=== PATIENT | female | born 1940 | race Two or more races ===

== ENCOUNTER 2021-03-17 12:16 | Inpatient (IN) | payer OTHER, MEDICAID ==
[~2021-03-17] VITALS: Ht 152.4 cm; Wt 76.1 kg
[~2021-03-17 12:16] MED LIST: ASPI-543 PO; GLIP5TAB12 PO; METF-370 PO
[2021-03-17] MEDS ORDERED: ONDANSETRON HCL 4 MG/2 ML VIAL IV ONE (13:15)
[2021-03-17] MEDS ORDERED: MORPHINE SULFATE 4 MG/ML SYR/VIAL IV ONE ×2 (13:15→19:45)
[2021-03-17 14:12] LABS: Basophils # (auto) 0 10 ^3/uL (0-0.2); Basophils % (auto) 0.4 % (0.0-2.0); Eosinophils # (auto) 0.1 10 ^3/uL (0-0.8); Eosinophils % (auto) 1.3 % (0.0-7.0); Hemoglobin 10.4 g/dL (12.2-16.2); Lymphocytes # (auto) 0.6 10 ^3/uL (0.4-5.4); Lymphocytes % (auto) 7.7 % (10.0-50.0); Mean Corpuscular Hemoglobin 30.4 pg (28.0-32.0); Mean Corpuscular Hgb Conc. 32.6 g/dL (32.0-36.0); Mean Corpuscular Volume 93.4 fL (80.0-100.0); Monocytes # (auto) 0.3 10 ^3/uL (0-1.3); Monocytes % (auto) 3.7 % (0.0-12.0); Neutrophils # (auto) 6.2 10 ^3/uL (1.6-8.6); Neutrophils % (auto) 86.9 % (37.0-80.0); Nucleated Red Blood Cells % 0.1 %; Red Blood Cells 3.43 10^6/uL (4.0-5.20); Red Cell Distribution Width 17.2 % (11.8-14.3); White Blood Cell 7.1 10^3/uL (4.4-10.8)
[2021-03-17 14:17] LABS: Albumin 1.4 g/dL (3.4-5.0); Anion Gap 7 (5-15); Blood Urea Nitrogen 24 mg/dL (7-18); Carbon Dioxide 27 mmol/L (21-32); Chloride 105 mmol/L (98-107); Glucose 134 mg/dL (74-106); Potassium 3.2 mmol/L (3.5-5.1); Sodium 139 mmol/L (136-145)
[2021-03-17 14:20] LABS: Alanine Aminotransferase < 6 U/L (13-56); Alkaline Phosphatase 136 U/L (45-117); Aspartate Aminotransferase 20 U/L (15-37); BUN/Creatinine Ratio 10.7; Bilirubin, Total 0.5 mg/dL (0.2-1.0); GFR African American 27 mL/min; GFR Non-African American 22 mL/min; Total Protein 5.5 g/dL (6.4-8.2)
[2021-03-17 14:58] LABS: INR 1.26 (0.9-1.15); Partial Thromboplastin Time 33.1 sec (23.6-33.0)
[2021-03-17] MEDS ORDERED: POTASSIUM EFFERVESENT TAB 25 MEQ PO ONE (17:00)
[2021-03-17] MEDS ORDERED: SODIUM CHLORIDE 0.9% 1,000 ML IV ONE (18:15)
[2021-03-17 19:04] LABS: Basophils # (auto) 0.1 10 ^3/uL (0-0.2); Basophils % (auto) 0.5 % (0.0-2.0); Eosinophils # (auto) 0 10 ^3/uL (0-0.8); Eosinophils % (auto) 0.4 % (0.0-7.0); Hematocrit 30.9 % (36.0-46.0); Hemoglobin 9.9 g/dL (12.2-16.2); Lymphocytes # (auto) 0.6 10 ^3/uL (0.4-5.4); Lymphocytes % (auto) 5.3 % (10.0-50.0); Mean Corpuscular Hemoglobin 30.2 pg (28.0-32.0); Mean Corpuscular Volume 94.4 fL (80.0-100.0); Monocytes # (auto) 0.4 10 ^3/uL (0-1.3); Monocytes % (auto) 3.5 % (0.0-12.0); Neutrophils # (auto) 9.5 10 ^3/uL (1.6-8.6); Neutrophils % (auto) 90.3 % (37.0-80.0); Red Blood Cells 3.27 10^6/uL (4.0-5.20); Red Cell Distribution Width 17.3 % (11.8-14.3); White Blood Cell 10.5 10^3/uL (4.4-10.8)
[2021-03-18] MEDS ORDERED: ACETAMINOPHEN 325 MG TAB PO PRN (00:45)
[2021-03-18] MEDS ORDERED: NITROGLYCERIN 0.4 MG SL TAB SL PRN (00:45)
[2021-03-18] MEDS ORDERED: DOCUSATE SOD 100 MG CAP PO PRN (00:45)
[2021-03-18] MEDS ORDERED: MORPHINE SULFATE INJECTION 2 MG/ML SYRG IV PRN (00:45)
[2021-03-18] MEDS ORDERED: ALBUMIN 25% 100 ML IV ONE (00:45)
[2021-03-18] MEDS ORDERED: DEXTROSE (50%) 50ML SYRG IV PRN (00:45)
[2021-03-18] MEDS ORDERED: ONDANSETRON HCL 4 MG/2 ML VIAL IV PRN (00:45)
[2021-03-18 01:45] VITALS: BP 124/73
[2021-03-18 05:00] VITALS: BP 102/43
[2021-03-18] MEDS ORDERED: APIX2.5T PO (05:12)
[2021-03-18] MEDS ORDERED: METR500T PO (05:14)
[2021-03-18] MEDS ORDERED: CIPR-173 PO (05:14)
[2021-03-18] MEDS ORDERED: AMIO200T33 PO (05:14)
[2021-03-18] MEDS: HYDROcodone-ACET 5/325MG TAB PO PRN (06:09)
[2021-03-18] MEDS: SODIUM CHLOR 0.9% PF (SALINE LOCK) 10ML VIAL/SYR IV SCH ×3 (06:11→21:04)
[2021-03-18] MEDS: ACCU-CHEK COMFORT CURVE STRIP VI SCH ×4 (06:22→21:05)
[2021-03-18] MEDS: InsuLIN REG 1unit/0.01ml Soln (100units/ml) SC SCH ×4 (06:23→21:12)
[2021-03-18 07:40] LABS: Basophils # (auto) 0 10 ^3/uL (0-0.2); Eosinophils # (auto) 0 10 ^3/uL (0-0.8); Eosinophils % (auto) 0.6 % (0.0-7.0); Hematocrit 22.4 % (36.0-46.0); Lymphocytes # (auto) 0.4 10 ^3/uL (0.4-5.4); Monocytes # (auto) 0.3 10 ^3/uL (0-1.3); Red Cell Distribution Width 17.5 % (11.8-14.3)
[2021-03-18 07:42] LABS: Basophils % (auto) 0.5 % (0.0-2.0); Hemoglobin 7.4 g/dL (12.2-16.2); Lymphocytes % (auto) 6.9 % (10.0-50.0); Mean Corpuscular Volume 93.9 fL (80.0-100.0); Monocytes % (auto) 4.6 % (0.0-12.0); Neutrophils # (auto) 5.5 10 ^3/uL (1.6-8.6); Neutrophils % (auto) 87.4 % (37.0-80.0); Red Blood Cells 2.38 10^6/uL (4.0-5.20); White Blood Cell 6.3 10^3/uL (4.4-10.8)
[2021-03-18 08:14] LABS: Albumin 1.8 g/dL (3.4-5.0); Anion Gap 8 (5-15); Blood Urea Nitrogen 28 mg/dL (7-18); Calcium 7.1 mg/dL (8.5-10.1); Carbon Dioxide 26 mmol/L (21-32); Chloride 107 mmol/L (98-107); Glucose 135 mg/dL (74-106); Sodium 141 mmol/L (136-145)
[2021-03-18 08:21] LABS: Alanine Aminotransferase < 6 U/L (13-56); Alkaline Phosphatase 91 U/L (45-117); Aspartate Aminotransferase 15 U/L (15-37); BUN/Creatinine Ratio 11.5; Bilirubin, Total 0.6 mg/dL (0.2-1.0); Cholesterol 55 mg/dL (< 200); GFR African American 25 mL/min; GFR Non-African American 20 mL/min; HDL Cholesterol 20 mg/dL (40-59); LDL Cholesterol 26 mg/dL (< 100); Total Protein 4.7 g/dL (6.4-8.2); Triglycerides 99 mg/dL (< 150)
[2021-03-18 09:00] VITALS: BP 111/51
[2021-03-18] MEDS: ZINC SULFATE 220mg CAP or TAB PO SCH (09:18)
[2021-03-18] MEDS: ASCORBIC ACID 500 MG TAB PO SCH ×2 (09:19→21:05)
[2021-03-18] MEDS: SEVELAMER 800 MG TAB PO SCH ×3 (09:19→18:10)
[2021-03-18] MEDS: B-COMPLEX W/ C & FOLIC ACID(NEPHROVITE TAB) PO SCH (09:19)
[2021-03-18] MEDS ORDERED: ASPirin 81 mg TAB PO SCH (10:00)
[2021-03-18] MEDS ORDERED: cefTRIAXone 1GM/50ML D5W 50 ML IV ONE (11:15)
[2021-03-18] MEDS ORDERED: AMIODARONE HCL 200 MG TAB PO ONE (11:15)
[2021-03-18 13:00] VITALS: BP 134/95
[2021-03-18] MEDS ORDERED: FUROSEMIDE 100 MG/10ML VIAL IV ONE (13:45)
[2021-03-18] MEDS: metroNIDAZOLE 500MG/100ML 100 ML IV SCH ×2 (14:01→21:04)
[2021-03-18 16:51] VITALS: BP 119/66
[2021-03-18] MEDS: ATORVASTATIN 20 MG TAB PO SCH (21:04)
[2021-03-18 22:00] VITALS: BP 113/55
[2021-03-19] VITALS (9 sets, daily range): BP systolic 99–149; BP diastolic 39–74
[2021-03-19 05:43] LABS: Basophils # (auto) 0 10 ^3/uL (0-0.2); Lymphocytes # (auto) 0.5 10 ^3/uL (0.4-5.4); Monocytes # (auto) 0.3 10 ^3/uL (0-1.3); Red Blood Cells 2.11 10^6/uL (4.0-5.20)
[2021-03-19 05:44] LABS: Basophils % (auto) 0.5 % (0.0-2.0); Eosinophils # (auto) 0.1 10 ^3/uL (0-0.8); Eosinophils % (auto) 2.4 % (0.0-7.0); Hematocrit 19.7 % (36.0-46.0); Mean Corpuscular Hemoglobin 31.1 pg (28.0-32.0); Mean Corpuscular Hgb Conc. 33.3 g/dL (32.0-36.0); Mean Corpuscular Volume 93.4 fL (80.0-100.0); Monocytes % (auto) 4.9 % (0.0-12.0); Neutrophils # (auto) 4.6 10 ^3/uL (1.6-8.6); Neutrophils % (auto) 83.2 % (37.0-80.0); Nucleated Red Blood Cells % 0.1 %; Red Cell Distribution Width 17.4 % (11.8-14.3); White Blood Cell 5.5 10^3/uL (4.4-10.8)
[2021-03-19 05:47] LABS: Hemoglobin 6.6 g/dL (12.2-16.2)
[2021-03-19 05:49] LABS: Albumin 1.5 g/dL (3.4-5.0); Anion Gap 9 (5-15); Blood Urea Nitrogen 30 mg/dL (7-18); Calcium 6.6 mg/dL (8.5-10.1); Carbon Dioxide 26 mmol/L (21-32); Chloride 106 mmol/L (98-107); Glucose 115 mg/dL (74-106); Potassium 3.6 mmol/L (3.5-5.1); Sodium 141 mmol/L (136-145)
[2021-03-19 05:54] LABS: Alanine Aminotransferase < 6 U/L (13-56); Alkaline Phosphatase 84 U/L (45-117); Aspartate Aminotransferase 9 U/L (15-37); BUN/Creatinine Ratio 11.3; Bilirubin, Total 0.4 mg/dL (0.2-1.0); GFR African American 22 mL/min; GFR Non-African American 19 mL/min; Total Protein 4.4 g/dL (6.4-8.2)
[2021-03-19] MEDS: SODIUM CHLOR 0.9% PF (SALINE LOCK) 10ML VIAL/SYR IV SCH ×3 (06:00→22:00)
[2021-03-19] MEDS: metroNIDAZOLE 500MG/100ML 100 ML IV SCH ×3 (06:00→23:02)
[2021-03-19] MEDS: ACCU-CHEK COMFORT CURVE STRIP VI SCH ×4 (06:48→23:02)
[2021-03-19] MEDS: InsuLIN REG 1unit/0.01ml Soln (100units/ml) SC SCH ×4 (07:00→23:25)
[2021-03-19] MEDS ORDERED: HEPARIN 1,000 UNITS/ml 1ML VIAL IV ONE (08:00)
[2021-03-19] MEDS: SEVELAMER 800 MG TAB PO SCH ×3 (08:00→18:00)
[2021-03-19] MEDS: cefTRIAXone 1GM/50ML D5W 50 ML IV SCH (09:00)
[2021-03-19] MEDS: HYDROcodone-ACET 5/325MG TAB PO PRN ×2 (09:25→20:26)
[2021-03-19] MEDS: B-COMPLEX W/ C & FOLIC ACID(NEPHROVITE TAB) PO SCH (15:58)
[2021-03-19] MEDS: ASCORBIC ACID 500 MG TAB PO SCH ×2 (15:58→23:02)
[2021-03-19] MEDS: AMIODARONE HCL 200 MG TAB PO SCH (15:59)
[2021-03-19] MEDS: ZINC SULFATE 220mg CAP or TAB PO SCH (15:59)
[2021-03-19 18:47] LABS: Hematocrit 30.9 % (36.0-46.0); Hemoglobin 10.2 g/dL (12.2-16.2)
[2021-03-19] MEDS ORDERED: EPOETIN ALFA-EPBX 10,000 UNIT/1ML VIAL SC ONE (21:00)
[2021-03-19] MEDS: ATORVASTATIN 20 MG TAB PO SCH (23:02)
[2021-03-20 05:00] VITALS: BP 112/55
[2021-03-20] MEDS: metroNIDAZOLE 500MG/100ML 100 ML IV SCH ×3 (05:51→22:06)
[2021-03-20] MEDS: HYDROcodone-ACET 5/325MG TAB PO PRN ×3 (05:51→18:15)
[2021-03-20] MEDS: SODIUM CHLOR 0.9% PF (SALINE LOCK) 10ML VIAL/SYR IV SCH ×3 (05:52→22:00)
[2021-03-20 06:33] LABS: Basophils # (auto) 0 10 ^3/uL (0-0.2); Basophils % (auto) 0.4 % (0.0-2.0); Eosinophils # (auto) 0.1 10 ^3/uL (0-0.8); Eosinophils % (auto) 1.7 % (0.0-7.0); Hematocrit 33.2 % (36.0-46.0); Hemoglobin 10.9 g/dL (12.2-16.2); Lymphocytes # (auto) 0.9 10 ^3/uL (0.4-5.4); Lymphocytes % (auto) 10.4 % (10.0-50.0); Mean Corpuscular Hemoglobin 30.2 pg (28.0-32.0); Mean Corpuscular Hgb Conc. 32.8 g/dL (32.0-36.0); Monocytes # (auto) 0.4 10 ^3/uL (0-1.3); Monocytes % (auto) 5.2 % (0.0-12.0); Neutrophils # (auto) 6.9 10 ^3/uL (1.6-8.6); Neutrophils % (auto) 82.3 % (37.0-80.0); Nucleated Red Blood Cells % 0.1 %; Red Blood Cells 3.61 10^6/uL (4.0-5.20); White Blood Cell 8.4 10^3/uL (4.4-10.8)
[2021-03-20 07:00] LABS: Potassium 3.6 mmol/L (3.5-5.1)
[2021-03-20] MEDS: InsuLIN REG 1unit/0.01ml Soln (100units/ml) SC SCH ×4 (07:00→22:00)
[2021-03-20 07:01] LABS: Calcium 6.6 mg/dL (8.5-10.1)
[2021-03-20 07:04] LABS: BUN/Creatinine Ratio 8.4
[2021-03-20] MEDS: ACCU-CHEK COMFORT CURVE STRIP VI SCH ×4 (07:28→22:06)
[2021-03-20] MEDS: SEVELAMER 800 MG TAB PO SCH ×3 (08:00→18:00)
[2021-03-20 09:00] VITALS: BP 132/76
[2021-03-20] MEDS: cefTRIAXone 1GM/50ML D5W 50 ML IV SCH (09:00)
[2021-03-20] MEDS: B-COMPLEX W/ C & FOLIC ACID(NEPHROVITE TAB) PO SCH (09:28)
[2021-03-20] MEDS: ZINC SULFATE 220mg CAP or TAB PO SCH (09:28)
[2021-03-20] MEDS: ASCORBIC ACID 500 MG TAB PO SCH ×2 (09:28→22:06)
[2021-03-20] MEDS: AMIODARONE HCL 200 MG TAB PO SCH (09:28)
[2021-03-20 13:00] VITALS: BP 119/65
[2021-03-20 17:00] VITALS: BP 107/54
[2021-03-20 22:00] VITALS: BP 143/79
[2021-03-20] MEDS: ATORVASTATIN 20 MG TAB PO SCH (22:06)
[2021-03-21 05:00] VITALS: BP 144/73
[2021-03-21] MEDS: metroNIDAZOLE 500MG/100ML 100 ML IV SCH ×2 (05:52→14:00)
[2021-03-21] MEDS: HYDROcodone-ACET 5/325MG TAB PO PRN ×3 (05:52→19:03)
[2021-03-21] MEDS: SODIUM CHLOR 0.9% PF (SALINE LOCK) 10ML VIAL/SYR IV SCH ×2 (06:00→12:57)
[2021-03-21] MEDS: ACCU-CHEK COMFORT CURVE STRIP VI SCH ×4 (07:00→22:00)
[2021-03-21] MEDS: InsuLIN REG 1unit/0.01ml Soln (100units/ml) SC SCH ×4 (07:00→22:00)
[2021-03-21] MEDS: ZINC SULFATE 220mg CAP or TAB PO SCH (08:53)
[2021-03-21] MEDS: SEVELAMER 800 MG TAB PO SCH ×3 (08:53→17:25)
[2021-03-21] MEDS: cefTRIAXone 1GM/50ML D5W 50 ML IV SCH (08:53)
[2021-03-21] MEDS: ASCORBIC ACID 500 MG TAB PO SCH (08:54)
[2021-03-21] MEDS: B-COMPLEX W/ C & FOLIC ACID(NEPHROVITE TAB) PO SCH (08:54)
[2021-03-21] MEDS: AMIODARONE HCL 200 MG TAB PO SCH (08:54)
[2021-03-21 09:00] VITALS: BP 112/57
[2021-03-21 13:00] VITALS: BP 128/66
[2021-03-21 14:05] LABS: Hepatitis A Ab IgM Negative
[2021-03-21 14:21] LABS: Hepatitis B Core IgM Negative
[2021-03-21 14:23] LABS: Hepatitis C Antibody Negative (Negative)
[2021-03-21] MEDS ORDERED: FLUCONAZOLE 200MG/100ML 100 ML IV ONE (15:00)
[2021-03-21 17:00] VITALS: BP 143/68
[2021-03-21] MEDS: LINEZOLID 600MG/300ML 300 ML IV SCH (17:25)
[2021-03-21 20:00] VITALS: BP 134/95
[2021-03-21 22:00] VITALS: BP 128/68
[2021-03-22] MEDS: metroNIDAZOLE 500MG/100ML 100 ML IV SCH ×4 (00:13→22:03)
[2021-03-22] MEDS: SODIUM CHLOR 0.9% PF (SALINE LOCK) 10ML VIAL/SYR IV SCH ×4 (00:14→22:04)
[2021-03-22] MEDS: ATORVASTATIN 20 MG TAB PO SCH ×2 (00:14→22:04)
[2021-03-22] MEDS: ASCORBIC ACID 500 MG TAB PO SCH ×3 (00:14→22:04)
[2021-03-22 05:00] VITALS: BP 124/62
[2021-03-22] MEDS: LINEZOLID 600MG/300ML 300 ML IV SCH ×2 (05:44→18:00)
[2021-03-22 06:26] LABS: Basophils # (auto) 0 10 ^3/uL (0-0.2); Basophils % (auto) 0.8 % (0.0-2.0); Eosinophils # (auto) 0.2 10 ^3/uL (0-0.8); Eosinophils % (auto) 3.1 % (0.0-7.0); Hemoglobin 10.2 g/dL (12.2-16.2); Lymphocytes # (auto) 0.9 10 ^3/uL (0.4-5.4); Lymphocytes % (auto) 15.4 % (10.0-50.0); Mean Corpuscular Hemoglobin 30.7 pg (28.0-32.0); Mean Corpuscular Volume 92.9 fL (80.0-100.0); Monocytes # (auto) 0.4 10 ^3/uL (0-1.3); Monocytes % (auto) 6.6 % (0.0-12.0); Neutrophils # (auto) 4.4 10 ^3/uL (1.6-8.6); Neutrophils % (auto) 74.1 % (37.0-80.0); Nucleated Red Blood Cells % 0.1 %; Red Blood Cells 3.33 10^6/uL (4.0-5.20); Red Cell Distribution Width 16.4 % (11.8-14.3)
[2021-03-22 06:51] LABS: BUN/Creatinine Ratio 11.1; Calcium 6.4 mg/dL (8.5-10.1)
[2021-03-22] MEDS: ACCU-CHEK COMFORT CURVE STRIP VI SCH ×4 (07:00→22:04)
[2021-03-22] MEDS: InsuLIN REG 1unit/0.01ml Soln (100units/ml) SC SCH ×4 (07:00→22:18)
[2021-03-22] MEDS: SEVELAMER 800 MG TAB PO SCH ×3 (08:00→18:00)
[2021-03-22] MEDS: HYDROcodone-ACET 5/325MG TAB PO PRN ×3 (08:30→19:20)
[2021-03-22 09:00] VITALS: BP 129/61
[2021-03-22] MEDS ORDERED: SODIUM CHL 0.9% 1000 ML BAG XX ONE (11:45)
[2021-03-22 12:00] VITALS: BP 124/61
[2021-03-22] MEDS: ZINC SULFATE 220mg CAP or TAB PO SCH (14:00)
[2021-03-22] MEDS: AMIODARONE HCL 200 MG TAB PO SCH (14:00)
[2021-03-22] MEDS: FLUCONAZOLE 200MG/100ML 100 ML IV SCH (14:00)
[2021-03-22] MEDS: B-COMPLEX W/ C & FOLIC ACID(NEPHROVITE TAB) PO SCH (14:00)
[2021-03-22 14:15] VITALS: BP 124/61
[2021-03-22 16:00] VITALS: BP 136/69
[2021-03-22 21:58] VITALS: BP 123/57
[2021-03-23] MEDS: HYDROcodone-ACET 5/325MG TAB PO PRN ×3 (03:09→15:17)
[2021-03-23 05:00] VITALS: BP 126/66
[2021-03-23] MEDS: metroNIDAZOLE 500MG/100ML 100 ML IV SCH (05:35)
[2021-03-23] MEDS: SODIUM CHLOR 0.9% PF (SALINE LOCK) 10ML VIAL/SYR IV SCH ×2 (05:35→16:53)
[2021-03-23] MEDS: ACCU-CHEK COMFORT CURVE STRIP VI SCH ×3 (06:52→17:00)
[2021-03-23] MEDS: InsuLIN REG 1unit/0.01ml Soln (100units/ml) SC SCH ×3 (06:52→17:00)
[2021-03-23] MEDS: LINEZOLID 600MG/300ML 300 ML IV SCH (07:09)
[2021-03-23] MEDS: SEVELAMER 800 MG TAB PO SCH ×2 (08:32→12:29)
[2021-03-23 09:00] VITALS: BP 132/70
[2021-03-23] MEDS: FLUCONAZOLE 200MG/100ML 100 ML IV SCH (11:03)
[2021-03-23] MEDS: ASCORBIC ACID 500 MG TAB PO SCH (11:03)
[2021-03-23] MEDS: B-COMPLEX W/ C & FOLIC ACID(NEPHROVITE TAB) PO SCH (11:03)
[2021-03-23] MEDS: AMIODARONE HCL 200 MG TAB PO SCH (11:03)
[2021-03-23] MEDS: ZINC SULFATE 220mg CAP or TAB PO SCH (11:03)
[2021-03-23 13:17] VITALS: BP 151/71
[2021-03-23] MEDS ORDERED: metroNIDAZOLE 500 MG TAB PO SCH (14:00)
[2021-03-23 17:00] VITALS: BP 110/65
[2021-03-23] MEDS ORDERED: LINEZOLID 600MG TABLET PO SCH (22:00)
[2021-03-24] MEDS ORDERED: FLUCONAZOLE 100 MG TAB PO SCH (10:00)
== END 2021-03-23 17:30 | disposition home or self-care (01) | DRG 604 ==
LOC: ER 12:16 → EDBD 12:16 → EDUNIT# 12:16 → TELE 03-18 00:36 → TELE-WESTW 03-18 01:45 → TELE-EAST 03-23 02:00
PROVIDERS: ADMIT Nurse Practitioner Family; ATTEND Internal Medicine Geriatric Medicine
PROC: 30233N1 Transfusion of Nonautologous Red Blood Cells into Peripheral Vein, Percutaneous Approach (ICD-10-PCS; principal; 2021-03-19)
PROC: 5A1D70Z Performance of Urinary Filtration, Intermittent, Less than 6 Hours Per Day (ICD-10-PCS; 2021-03-19)
PROC: 5A1D70Z Performance of Urinary Filtration, Intermittent, Less than 6 Hours Per Day (ICD-10-PCS; 2021-03-22)
DX: S71.002A Unspecified open wound, left hip, initial encounter (principal); N18.6 End stage renal disease; U07.1 COVID-19; D62 Acute posthemorrhagic anemia; E44.0 Moderate protein-calorie malnutrition; D68.9 Coagulation defect, unspecified; I13.2 Hypertensive heart and chronic kidney disease with heart failure and with stage 5 chronic kidney disease, or end stage renal disease; N17.9 Acute kidney failure, unspecified; E87.6 Hypokalemia; E88.09 Other disorders of plasma-protein metabolism, not elsewhere classified; D63.1 Anemia in chronic kidney disease; I48.0 Paroxysmal atrial fibrillation; E11.22 Type 2 diabetes mellitus with diabetic chronic kidney disease; E11.65 Type 2 diabetes mellitus with hyperglycemia; I25.10 Atherosclerotic heart disease of native coronary artery without angina pectoris; I25.5 Ischemic cardiomyopathy; I50.9 Heart failure, unspecified; X58.XXXA Exposure to other specified factors, initial encounter; Z79.01 Long term (current) use of anticoagulants; Z99.2 Dependence on renal dialysis; Z80.0 Family history of malignant neoplasm of digestive organs; Z80.1 Family history of malignant neoplasm of trachea, bronchus and lung; Z80.3 Family history of malignant neoplasm of breast; Z80.41 Family history of malignant neoplasm of ovary; Z81.8 Family history of other mental and behavioral disorders; Z82.0 Family history of epilepsy and other diseases of the nervous system; Z82.3 Family history of stroke; Z82.49 Family history of ischemic heart disease and other diseases of the circulatory system; Z82.5 Family history of asthma and other chronic lower respiratory diseases; Z82.62 Family history of osteoporosis; Z83.3 Family history of diabetes mellitus; Z90.5 Acquired absence of kidney; Z98.61 Coronary angioplasty status; Z85.528 Personal history of other malignant neoplasm of kidney; Z80.8 Family history of malignant neoplasm of other organs or systems; Y93.89 Activity, other specified; Y92.89 Other specified places as the place of occurrence of the external cause; Y99.8 Other external cause status; Z68.28 Body mass index [BMI] 28.0-28.9, adult
CPT/HCPCS: 36415; 71045; 80048; 80053; 80061; 80074; 82962; 83036; 85014; 85018; 85025; 85610; 85730; 86850; 86900; 86901; 86920; 87077; 87081; 87186; 87205; 87426; 90935; 93005; 96361; 96365; 96375; 96376; G0378; J0696; J1450; J1642; J1815; J2405; J3490; P9047

== ENCOUNTER 2021-04-11 19:38 | Inpatient (IN) | payer OTHER, MEDICAID ==
[~2021-04-11] VITALS: Ht 152.4 cm; Wt 64.9 kg
[~2021-04-11 19:38] MED LIST changes: +AMIO200T33 PO; +APIX2.5T PO; +CIPR-173 PO; +METR500T PO
[2021-04-12 01:14] LABS: Basophils # (auto) 0 10 ^3/uL (0-0.2); Basophils % (auto) 0.3 % (0.0-2.0); Eosinophils # (auto) 0 10 ^3/uL (0-0.8); Eosinophils % (auto) 0.1 % (0.0-7.0); Hematocrit 26.3 % (36.0-46.0); Hemoglobin 8.8 g/dL (12.2-16.2); Lymphocytes # (auto) 0.9 10 ^3/uL (0.4-5.4); Mean Corpuscular Hemoglobin 31.5 pg (28.0-32.0); Mean Corpuscular Hgb Conc. 33.3 g/dL (32.0-36.0); Mean Corpuscular Volume 94.4 fL (80.0-100.0); Monocytes # (auto) 0.6 10 ^3/uL (0-1.3); Monocytes % (auto) 7.3 % (0.0-12.0); Neutrophils # (auto) 6.2 10 ^3/uL (1.6-8.6); Neutrophils % (auto) 80.3 % (37.0-80.0); Nucleated Red Blood Cells % 0.1 %; Red Blood Cells 2.79 10^6/uL (4.0-5.20); Red Cell Distribution Width 17.1 % (11.8-14.3); White Blood Cell 7.8 10^3/uL (4.4-10.8)
[2021-04-12 01:36] LABS: Albumin 1.7 g/dL (3.4-5.0); Calcium 6.9 mg/dL (8.5-10.1); Potassium 3.5 mmol/L (3.5-5.1)
[2021-04-12 01:42] LABS: BUN/Creatinine Ratio 11.5; Bilirubin, Total 0.4 mg/dL (0.2-1.0); Total Protein 5.4 g/dL (6.4-8.2)
[2021-04-12] MEDS ORDERED: CALCIUM GLUC 1,000mg/50ml-NS 50 ML IV ONE (06:00)
[2021-04-12] MEDS ORDERED: IOHEXOL 300 MG/ML 100ML BOTTLE IJ ONE (09:52)
[2021-04-12] MEDS ORDERED: MORPHINE SULFATE INJECTION 2 MG/ML SYRG IV PRN ×3 (10:00→13:15)
[2021-04-12] MEDS ORDERED: NITROGLYCERIN 0.4 MG SL TAB SL PRN ×2 (10:00→13:15)
[2021-04-12] MEDS ORDERED: POTA-264 PO (10:46)
[2021-04-12] MEDS ORDERED: LISI40TA11 PO (10:46)
[2021-04-12] MEDS ORDERED: ATOR40TA52 PO (10:46)
[2021-04-12] MEDS ORDERED: CALC0.25 PO (10:46)
[2021-04-12] MEDS ORDERED: CHOL50007 PO (10:46)
[2021-04-12] MEDS ORDERED: VANCOMYCIN PER PHARMACY 0 MG IV SCH (11:30)
[2021-04-12] MEDS ORDERED: PIPERACILLIN-TAZOB 2.25GM 50 ML IV SCH (12:00)
[2021-04-12] MEDS ORDERED: BUMETANIDE 2.5mg/10ml (0.25 mg/ml) INJ IV ONE (13:15)
[2021-04-12] MEDS ORDERED: ALUM & MAG HYDROX-SIMETH LIQ(MAALOX) 30 ML PO PRN (13:15)
[2021-04-12] MEDS ORDERED: hydrALAZINE HCL 20 MG/ML VL IV PRN (13:15)
[2021-04-12] MEDS ORDERED: METOCLOPRAMIDE HCL 5MG/ml INJ 2ml VIAL IV PRN (13:15)
[2021-04-12] MEDS ORDERED: DOCUSATE SOD 100 MG CAP PO PRN (13:15)
[2021-04-12] MEDS ORDERED: LORazepam 0.5 MG TAB PO PRN (13:15)
[2021-04-12] MEDS ORDERED: ACETAMINOPHEN 325 MG TAB PO PRN (13:15)
[2021-04-12] MEDS ORDERED: PANTOPRAZOLE 40 MG/10 ML VIAL INJ IV ONE (13:30)
[2021-04-12] MEDS ORDERED: DEXTROSE (50%) 50ML SYRG IV PRN (13:30)
[2021-04-12] MEDS: hydrALAZINE HCL 25 MG TAB PO SCH ×2 (14:00→23:56)
[2021-04-12] MEDS ORDERED: IPRATROPIUM BROM 0.5 MG/2.5ML INH SOL NEB SCH (14:00)
[2021-04-12] MEDS: VANCOMYCIN 1GM/250ML 250 ML IV SCH (16:41)
[2021-04-12] MEDS: InsuLIN REG 1unit/0.01ml Soln (100units/ml) SC SCH ×2 (17:54→22:00)
[2021-04-12] MEDS: ACCU-CHEK COMFORT CURVE STRIP VI SCH ×2 (17:54→23:59)
[2021-04-12] MEDS: CALCIUM W/VIT D (600MG/400IU) TAB PO SCH (18:35)
[2021-04-12] MEDS: BUMETANIDE 2.5mg/10ml (0.25 mg/ml) INJ IV SCH (18:37)
[2021-04-12 20:30] VITALS: BP 108/60
[2021-04-12 22:00] VITALS: BP 108/60
[2021-04-12] MEDS: PIPERACILLIN-TAZOB 2.25GM 50 ML IV SCH (23:56)
[2021-04-12] MEDS: ATORVASTATIN 20 MG TAB PO SCH (23:57)
[2021-04-12] MEDS: CARVEDILOL 3.125 MG TAB PO SCH (23:58)
[2021-04-13] MEDS: ISOSORBIDE MONONITRATE 20 MG TAB PO SCH ×3 (00:28→22:13)
[2021-04-13 05:00] VITALS: BP 95/46
[2021-04-13 05:57] LABS: Basophils # (auto) 0 10 ^3/uL (0-0.2); Eosinophils # (auto) 0 10 ^3/uL (0-0.8); Eosinophils % (auto) 0.3 % (0.0-7.0); Hemoglobin 7.5 g/dL (12.2-16.2); Monocytes # (auto) 0.6 10 ^3/uL (0-1.3); Neutrophils # (auto) 3.7 10 ^3/uL (1.6-8.6); White Blood Cell 5.4 10^3/uL (4.4-10.8)
[2021-04-13] MEDS ORDERED: IPRATROPIUM BROM 0.5 MG/2.5ML INH SOL NEB PRN (06:00)
[2021-04-13 06:02] LABS: Basophils % (auto) 0.5 % (0.0-2.0); Hematocrit 22.9 % (36.0-46.0); Lymphocytes # (auto) 1.1 10 ^3/uL (0.4-5.4); Lymphocytes % (auto) 21.1 % (10.0-50.0); Mean Corpuscular Hemoglobin 30.8 pg (28.0-32.0); Mean Corpuscular Hgb Conc. 32.9 g/dL (32.0-36.0); Mean Corpuscular Volume 93.8 fL (80.0-100.0); Monocytes % (auto) 10.6 % (0.0-12.0); Neutrophils % (auto) 67.5 % (37.0-80.0); Red Blood Cells 2.44 10^6/uL (4.0-5.20); Red Cell Distribution Width 17.5 % (11.8-14.3)
[2021-04-13 06:13] LABS: Albumin 1.5 g/dL (3.4-5.0); Anion Gap 9 (5-15); Blood Urea Nitrogen 25 mg/dL (7-18); Calcium 6.7 mg/dL (8.5-10.1); Carbon Dioxide 28 mmol/L (21-32); Chloride 103 mmol/L (98-107); Glucose 104 mg/dL (74-106); Magnesium 2.6 mg/dL (1.6-2.6); Potassium 3.6 mmol/L (3.5-5.1); Sodium 140 mmol/L (136-145)
[2021-04-13 06:16] LABS: INR 1.18 (0.9-1.15); Partial Thromboplastin Time 30.8 sec (23.6-33.0)
[2021-04-13 06:20] LABS: Alanine Aminotransferase < 6 U/L (13-56); Alkaline Phosphatase 104 U/L (45-117); Aspartate Aminotransferase 13 U/L (15-37); Bilirubin, Total 0.4 mg/dL (0.2-1.0); GFR African American 30 mL/min; GFR Non-African American 24 mL/min; Total Protein 4.8 g/dL (6.4-8.2)
[2021-04-13] MEDS: InsuLIN REG 1unit/0.01ml Soln (100units/ml) SC SCH ×4 (07:00→22:08)
[2021-04-13] MEDS: PIPERACILLIN-TAZOB 2.25GM 50 ML IV SCH ×4 (07:10→20:51)
[2021-04-13] MEDS: hydrALAZINE HCL 25 MG TAB PO SCH ×3 (07:10→22:10)
[2021-04-13] MEDS: BUMETANIDE 2.5mg/10ml (0.25 mg/ml) INJ IV SCH ×2 (07:11→18:35)
[2021-04-13] MEDS: ACCU-CHEK COMFORT CURVE STRIP VI SCH ×4 (07:11→22:10)
[2021-04-13 09:00] VITALS: BP 100/46
[2021-04-13] MEDS: CALCIUM W/VIT D (600MG/400IU) TAB PO SCH ×2 (09:08→18:34)
[2021-04-13] MEDS: PANTOPRAZOLE 40 MG/10 ML VIAL INJ IV SCH (09:08)
[2021-04-13] MEDS: AMIODARONE HCL 200 MG TAB PO SCH (09:09)
[2021-04-13] MEDS: ASPirin-EC 81 mg tab PO SCH (09:09)
[2021-04-13] MEDS: APIXABAN 2.5 MG TAB PO SCH (09:09)
[2021-04-13] MEDS: POTASSIUM CHL 20 Meq TABLET PO SCH (09:14)
[2021-04-13] MEDS: CALCITRIOL 0.25 MCG CAP PO SCH (09:15)
[2021-04-13] MEDS: CARVEDILOL 3.125 MG TAB PO SCH ×2 (09:16→22:09)
[2021-04-13] MEDS: HYDROcodone-ACET 5/325MG TAB PO PRN ×2 (09:17)
[2021-04-13 12:41] VITALS: BP 104/55
[2021-04-13] MEDS: VANCOMYCIN 1GM/250ML 250 ML IV SCH (14:16)
[2021-04-13 16:52] VITALS: BP 105/52
[2021-04-13] MEDS ORDERED: EPOETIN ALFA-EPBX 10,000 UNIT/1ML VIAL IV ONE (18:30)
[2021-04-13 22:00] VITALS: BP 133/60
[2021-04-13] MEDS: ATORVASTATIN 20 MG TAB PO SCH (22:09)
[2021-04-14] MEDS: PIPERACILLIN-TAZOB 2.25GM 50 ML IV SCH ×3 (02:49→14:00)
[2021-04-14] MEDS: InsuLIN REG 1unit/0.01ml Soln (100units/ml) SC SCH ×3 (05:57→17:00)
[2021-04-14] MEDS: ACCU-CHEK COMFORT CURVE STRIP VI SCH ×3 (05:57→17:00)
[2021-04-14] MEDS ORDERED: HEPARIN SODIUM (PORCINE) 5000 UNITS/ML 1ML VIAL IV SCH (06:00)
[2021-04-14] MEDS: hydrALAZINE HCL 25 MG TAB PO SCH ×2 (06:03→14:00)
[2021-04-14] MEDS: BUMETANIDE 2.5mg/10ml (0.25 mg/ml) INJ IV SCH (06:03)
[2021-04-14 07:57] LABS: Basophils # (auto) 0 10 ^3/uL (0-0.2); Basophils % (auto) 0.4 % (0.0-2.0); Eosinophils # (auto) 0 10 ^3/uL (0-0.8); Eosinophils % (auto) 0.7 % (0.0-7.0); Hematocrit 24.7 % (36.0-46.0); Hemoglobin 8.2 g/dL (12.2-16.2); Lymphocytes # (auto) 1.5 10 ^3/uL (0.4-5.4); Lymphocytes % (auto) 24.3 % (10.0-50.0); Mean Corpuscular Hemoglobin 31.2 pg (28.0-32.0); Mean Corpuscular Hgb Conc. 33.1 g/dL (32.0-36.0); Mean Corpuscular Volume 94.3 fL (80.0-100.0); Monocytes # (auto) 0.6 10 ^3/uL (0-1.3); Monocytes % (auto) 9.7 % (0.0-12.0); Neutrophils % (auto) 64.9 % (37.0-80.0); Nucleated Red Blood Cells % 0.1 %; Red Blood Cells 2.62 10^6/uL (4.0-5.20); Red Cell Distribution Width 17.6 % (11.8-14.3); White Blood Cell 6.2 10^3/uL (4.4-10.8)
[2021-04-14 08:11] LABS: BUN/Creatinine Ratio 13.5; Calcium 7.3 mg/dL (8.5-10.1); Potassium 4.2 mmol/L (3.5-5.1)
[2021-04-14 09:00] VITALS: BP 129/62
[2021-04-14] MEDS: PANTOPRAZOLE 40 MG/10 ML VIAL INJ IV SCH (09:16)
[2021-04-14] MEDS: ASPirin-EC 81 mg tab PO SCH (09:16)
[2021-04-14] MEDS: POTASSIUM CHL 20 Meq TABLET PO SCH (09:17)
[2021-04-14] MEDS: CALCIUM W/VIT D (600MG/400IU) TAB PO SCH ×2 (09:17→18:00)
[2021-04-14] MEDS: CALCITRIOL 0.25 MCG CAP PO SCH (09:17)
[2021-04-14] MEDS: APIXABAN 2.5 MG TAB PO SCH (09:17)
[2021-04-14] MEDS: CARVEDILOL 3.125 MG TAB PO SCH (09:20)
[2021-04-14] MEDS: AMIODARONE HCL 200 MG TAB PO SCH (09:20)
[2021-04-14] MEDS: ISOSORBIDE MONONITRATE 20 MG TAB PO SCH (09:21)
[2021-04-14] MEDS: HYDROcodone-ACET 5/325MG TAB PO PRN (11:12)
[2021-04-14 13:00] VITALS: BP 119/56
[2021-04-14 15:18] VITALS: BP 119/56
[2021-04-14] MEDS ORDERED: EPOETIN ALFA-EPBX 10,000 UNIT/1ML VIAL IV ONE (21:00)
== END 2021-04-14 18:10 | disposition home or self-care (01) | DRG 280 ==
LOC: EDBD 19:38 → ER 19:42 → TELE 04-12 09:48 → TELE-CENTR 04-12 20:30
PROVIDERS: ADMIT Hospitalist; ATTEND Internal Medicine Geriatric Medicine
PROC: 5A1D70Z Performance of Urinary Filtration, Intermittent, Less than 6 Hours Per Day (ICD-10-PCS; principal; 2021-04-14)
DX: I13.2 Hypertensive heart and chronic kidney disease with heart failure and with stage 5 chronic kidney disease, or end stage renal disease (principal); L89.154 Pressure ulcer of sacral region, stage 4; I21.A1 Myocardial infarction type 2; N18.6 End stage renal disease; E43 Unspecified severe protein-calorie malnutrition; L89.323 Pressure ulcer of left buttock, stage 3; L89.313 Pressure ulcer of right buttock, stage 3; M86.10 Other acute osteomyelitis, unspecified site; I74.5 Embolism and thrombosis of iliac artery; I50.32 Chronic diastolic (congestive) heart failure; I95.9 Hypotension, unspecified; L89.202 Pressure ulcer of unspecified hip, stage 2; I48.0 Paroxysmal atrial fibrillation; D64.9 Anemia, unspecified; E11.22 Type 2 diabetes mellitus with diabetic chronic kidney disease; E11.69 Type 2 diabetes mellitus with other specified complication; E78.5 Hyperlipidemia, unspecified; L89.220 Pressure ulcer of left hip, unstageable; L89.210 Pressure ulcer of right hip, unstageable; L89.620 Pressure ulcer of left heel, unstageable; L89.611 Pressure ulcer of right heel, stage 1; Z20.822 Contact with and (suspected) exposure to COVID-19; Z79.01 Long term (current) use of anticoagulants; Z79.4 Long term (current) use of insulin; Z79.899 Other long term (current) drug therapy; Z80.1 Family history of malignant neoplasm of trachea, bronchus and lung; Z80.3 Family history of malignant neoplasm of breast; Z80.41 Family history of malignant neoplasm of ovary; Z99.2 Dependence on renal dialysis; Z68.22 Body mass index [BMI] 22.0-22.9, adult; Z80.8 Family history of malignant neoplasm of other organs or systems; Z81.8 Family history of other mental and behavioral disorders; Z82.0 Family history of epilepsy and other diseases of the nervous system; Z82.3 Family history of stroke; Z82.49 Family history of ischemic heart disease and other diseases of the circulatory system; Z82.5 Family history of asthma and other chronic lower respiratory diseases; Z82.62 Family history of osteoporosis; Z83.3 Family history of diabetes mellitus; Z95.0 Presence of cardiac pacemaker
CPT/HCPCS: 36415; 71046; 72193; 80048; 80053; 80202; 82962; 83605; 83735; 83880; 84100; 84443; 84484; 85025; 85379; 85610; 85730; 87040; 87077; 87081; 87205; 87426; 90935; 93005; 96365; 96367; 96375; C9113; G0378; J1815; J2543